=== PATIENT | female | born 1985 | race Caucasian/White ===

== ENCOUNTER 2017-07-23 22:39 | Emergency (ER) | payer OTHER ==
[~2017-07-23] VITALS: Ht 162.6 cm; Wt 117.4 kg
[2017-07-24 01:40] VITALS: BP 135/84
[2017-07-25] MEDS ORDERED: FIORICET 50-301 EAC1 PO (10:50)
[2017-07-25] MEDS ORDERED: MECLIZINE HCL25 MG PO (10:50)
[2017-07-25] MEDS ORDERED: ZOFRAN4 MG PO (10:50)
== END 2017-07-24 01:40 | disposition home or self-care (01) ==
LOC: EME 22:39
DX: R55 Syncope and collapse (principal); S09.90XA Unspecified injury of head, initial encounter; R09.02 Hypoxemia; S09.93XA Unspecified injury of face, initial encounter; W19.XXXA Unspecified fall, initial encounter; I10 Essential (primary) hypertension; Z88.0 Allergy status to penicillin
CPT/HCPCS: 99281; 99283

== ENCOUNTER 2017-07-25 08:56 | Emergency (ER) | payer OTHER ==
[~2017-07-25] VITALS: Ht 162.6 cm; Wt 118.6 kg
[2017-07-25] MEDS ORDERED: MECLIZINE HCL25 MG PO (10:50)
[2017-07-25] MEDS ORDERED: ZOFRAN4 MG PO (10:50)
[2017-07-25] MEDS ORDERED: FIORICET 50-301 EAC1 PO (10:50)
[2017-07-25 11:03] VITALS: BP 117/81
== END 2017-07-25 11:04 | disposition home or self-care (01) ==
LOC: EME 08:56
DX: F07.81 Postconcussional syndrome (principal); R51 Headache; R42 Dizziness and giddiness; I10 Essential (primary) hypertension; Z88.0 Allergy status to penicillin
CPT/HCPCS: 99281; 99284; J1885